=== PATIENT | male | born 1990 | race Two or more races ===

== ENCOUNTER 2019-06-12 08:52 | Emergency (ER) | payer MEDICAID ==
[2019-06-12 09:07] VITALS: BP 158/96
[2019-06-12 10:40] LABS: ABSOLUTE BASOPHILS # (AUTO) 0.1 10^3/uL (0.0-0.2); ABSOLUTE EOSINOPHILS # (AUTO) 0.3 10^3/uL (0.0-0.6); ABSOLUTE LYMPHOCYTES (AUTO) 2.2 10^3/uL (0.5-4.7); ABSOLUTE MONOCYTES (AUTO) 0.6 10^3/uL (0.1-1.4); ABSOLUTE NEUT (AUTO) 4.5 10^3/uL (1.7-8.2); BASOPHILS % (AUTO) 0.7 % (0-2); EOSINOPHILS % (AUTO) 3.5 % (0-6); HEMATOCRIT 49.9 % (37.9-51.0); HEMOGLOBIN 16.6 g/dL (13.5-17.0); LYMPHOCYTES % (AUTO) 28.8 % (13-45); MEAN CORPUSCULAR HGB CONC 33.3 g/dL (32.0-36.0); MEAN CORPUSCULAR VOLUME 87 fl (80-97); MONOCYTES % (AUTO) 7.9 % (3-13); PLATELET COUNT 312 10^3/uL (150-450); RED BLOOD COUNT 5.74 10^6/uL (4.35-5.55); RED CELL DISTRIBUTION WIDTH 14.1 % (11.5-14.0); SEGMENTED NEUTROPHILS % (AUTO) 59.1 % (42-78); TOTAL CELLS COUNTED % (AUTO) 100 %; WHITE BLOOD COUNT 7.6 10^3/uL (4.0-10.5)
[2019-06-12] MEDS ORDERED: NORMAL SALINE 1000 ML 1,000 ML IV ONE (10:54)
[2019-06-12 11:05] LABS: ALBUMIN 4.8 g/dL (3.5-5.0); ALKALINE PHOSPHATASE 91 U/L (38-126); ANION GAP 14 (5-19); ASPARTATE AMINO TRANSFERASE 74 U/L (17-59); BILIRUBIN,DIRECT 0.2 mg/dL (0.0-0.4); BILIRUBIN,TOTAL 0.5 mg/dL (0.2-1.3); BLOOD UREA NITROGEN 10 mg/dL (7-20); CALCIUM 10.2 mg/dL (8.4-10.2); CARBON DIOXIDE 22 mmol/L (22-30); CHLORIDE 106 mmol/L (98-107); CREATINE KINASE 343 U/L (55-170); GLUCOSE 99 mg/dL (75-110); POTASSIUM 4.7 mmol/L (3.6-5.0); TOTAL PROTEIN 8.4 g/dL (6.3-8.2)
[2019-06-12 11:14] LABS: CREATINE KINASE MB 3.42 ng/mL (<4.55)
[2019-06-12 11:21] LABS: TROPONIN I 0.068 ng/mL
[2019-06-12 11:53] LABS: APPEARANCE,URINE CLEAR; BILIRUBIN,URINE NEGATIVE (NEGATIVE); COLOR,URINE YELLOW; GLUCOSE, URINE NEGATIVE (NEGATIVE); KETONES,URINE NEGATIVE (NEGATIVE); LEUKOCYTE ESTERASE,URINE NEGATIVE (NEGATIVE); NITRITE,URINE NEGATIVE (NEGATIVE); PROTEIN,URINE NEGATIVE (NEGATIVE); URINE SPECIFIC GRAVITY 1.018
[2019-06-12 12:19] LABS: URINE AMPHETAMINES SCREEN NEGATIVE; URINE BARBITURATES SCREEN NEGATIVE; URINE BENZODIAZEPINES SCREEN NEGATIVE; URINE COCAINE SCREEN NEGATIVE; URINE MARIJUANA (THC) SCREEN NEGATIVE; URINE METHADONE SCREEN NEGATIVE; URINE PHENCYCLIDINE SCREEN NEGATIVE
--- NOTE | 2019-06-12 12:22 | ER Document Report ---
Entered by SRAVANTHI DOMINGUEZ SCRIBE 06/12/19 1055 Acting as scribe for:KLAUS CERVANTES MD ED General - General Chief Complaint: Syncope Stated Complaint: SYNCOPAL EPISODE Time Seen by Provider: 06/12/19 10:39 Mode of Arrival: Ambulatory Information source: Patient Notes: 29-year-old male who presents to the emergency department today with complaints of a syncopal event that occurred this morning prior to arrival. Patient states he had just woken up, was getting clothes out and getting ready for work when the syncope occurred. Patient states the floor that he passed out on was carpeted. Patient denies any injuries from the event. Patient states he did not bite his tongue or become incontinent. - Related Data Allergies/Adverse Reactions: No Known Allergies Allergy (Unverified 06/12/19 09:50) Past Medical History - General Information source: Patient - Social History Smoking Status: Current Every Day Smoker Cigarette use (# per day): Yes - 1/2 ppd Chew tobacco use (# tins/day): No Frequency of alcohol use: Occasional Drug Abuse: None Occupation: call center Family History: Reviewed & Not Pertinent Patient has suicidal ideation: No Patient has homicidal ideation: No Review of Systems - Review of Systems Constitutional: No symptoms reported EENT: No symptoms reported Cardiovascular: See HPI, Syncope, Dizziness Respiratory: No symptoms reported Gastrointestinal: No symptoms reported Genitourinary: No symptoms reported Male Genitourinary: No symptoms reported Musculoskeletal: No symptoms reported Skin: No symptoms reported Hematologic/Lymphatic: No symptoms reported Neurological/Psychological: No symptoms reported -: Yes All other systems reviewed and negative Physical Exam - Vital signs Vitals: Temp Pulse Resp BP Pulse Ox 98.7 F 97 14 158/96 H 99 06/12/19 09:06 06/12/19 09:06 06/12/19 09:06 06/12/19 09:06 06/12/19 09:06 - Notes Notes: Physical Exam: General: Alert, appears well. HEENT: Normocephalic. Atraumatic. PERRL. Extraocular movements intact. Oropharynx clear. Edges of the patient's tongue are indented where teeth rest against it. Dry oral mucosa. Neck: Supple. Non-tender. Respiratory: No respiratory distress. Clear and equal breath sounds bilaterally. Cardiovascular: Regular rate and rhythm. Abdominal: Normal Inspection. Non-tender. No distension. Normal Bowel Sounds. Back: No gross abnormalities. Extremities: Moves all four extremities. Upper extremities: Normal inspection. Normal ROM. Lower extremities: Normal inspection. No edema. Normal ROM. Neurological: Normal cognition. AAOx4. Normal speech. Psychological: Normal affect. Normal Mood. Skin: Warm. Dry. Normal color. Course - Re-evaluation Re-evalutation: 06/12/19 11:12 The patient told the nurse after I left the room, that he wanted to be tested for STDs and HIV. I did ask the nurse to inform patient that we would do GC and chlamydia testing, but he would need to go to the health department for HIV testing. 06/12/19 11:49 The nurse just informed me that the patient pulled his IV out and eloped. - Vital Signs Vital signs: Temp Pulse Resp BP Pulse Ox 98.7 F 97 14 158/96 H 99 06/12/19 09:06 06/12/19 09:06 06/12/19 09:06 06/12/19 09:06 06/12/19 09:06 - Laboratory Result Diagrams: 06/12/19 10:05 06/12/19 10:05 Laboratory results interpreted by me: 06/12/19 06/12/19 06/12/19 10:05 10:05 10:05 RBC 5.74 H RDW 14.1 H AST 74 H Creatine Kinase 343 H Total Protein 8.4 H Urine Urobilinogen 4.0 H Discharge - Discharge Clinical Impression: Syncope and collapse, Requesting STD testing Disposition: ELOPED Scribe Attestation: 06/12/19 11:11 I personally performed the services described in the documentation, reviewed and edited the documentation which was dictated to the scribe in my presence, and it accurately records my words and actions. I personally performed the services described in the documentation, reviewed and edited the documentation which was dictated to the scribe in my presence, and it accurately records my words and actions.
[2019-06-12 12:59] LABS: CHLAM PCR NOT DETECTED (NOT DETECT)
--- NOTE | 2019-06-12 13:02 | EKG REPORT ---
SEVERITY:- NORMAL ECG - SINUS RHYTHM : Confirmed by: Farhat Odonnell MD 12-Jun-2019 13:02:03
== END 2019-06-12 11:49 | disposition left against medical advice (07) ==
LOC: ER 08:52
DX: R55 Syncope and collapse (principal); R42 Dizziness and giddiness; F17.210 Nicotine dependence, cigarettes, uncomplicated; Z11.3 Encounter for screening for infections with a predominantly sexual mode of transmission; Z53.20 Procedure and treatment not carried out because of patient's decision for unspecified reasons
CPT/HCPCS: 36415; 80053; 80307; 81001; 82550; 82553; 84484; 85025; 87491; 87591; 93005; 93010; 99281

== ENCOUNTER 2019-08-14 17:47 | Emergency (ER) | payer OTHER, MEDICAID ==
--- NOTE | 2019-08-14 18:20 | ER Document Report ---
ED Medical Screen (RME) - General Chief Complaint: Abdominal Pain Stated Complaint: LOWER ABDOMINAL PAIN Time Seen by Provider: 08/14/19 18:13 TRAVEL OUTSIDE OF THE [place] IN LAST 30 DAYS: No - HPI Notes: 08/14/19 18:17 Patient is a 29-year-old male with history of asthma who presents complaining of some burning with urination and left inguinal pain since Sunday. Patient states he does have some pain is mild to his left testicle as well. Patient states that he was preoperatively treated a couple weeks ago for exposure to gonorrhea. He has not noticed any drainage. He has been able to eat and drink without difficulty. He is having normal bowel movements. Denies drug allergies. No fever, chest pain, vomiting, diarrhea. I have treated and performed a rapid initial assessment of this patient. A comprehensive ED assessment and evaluation of the patient, analysis of test results and completion of medical decision making process will be conducted by additional ED providers. PHYSICAL EXAMINATION: GENERAL: Well-appearing, well-nourished and in no acute distress. ABDOMEN: Soft, nontender, nondistended abdomen. No guarding, no rebound. Normal bowel sounds present. No CVA tenderness bilaterally. : There is no erythema, swelling, ecchymosis, rash, necrosis noted. There is no urethral discharge or obvious inguinal hernia. + possible left inguinal adenopathy noted. Nontender to palpation of the testicles, scrotum, epididymal sacs, and penis. No transverse testicular lie. Cremasterics grossly intact bilaterally. - Related Data Allergies/Adverse Reactions: No Known Allergies Allergy (Verified 08/14/19 18:12) Past Medical History - Social History Chew tobacco use (# tins/day): No Frequency of alcohol use: None Drug Abuse: None Pulmonary Medical History: Reports: Hx Asthma Physical Exam - Vital signs Vitals: Temp Pulse Resp BP Pulse Ox 100.0 F 106 H 18 166/98 H 99 08/14/19 17:55 08/14/19 17:55 08/14/19 17:55 08/14/19 17:55 08/14/19 17:55 Course - Vital Signs Vital signs: Temp Pulse Resp BP Pulse Ox 100.0 F 106 H 18 166/98 H 99 08/14/19 18:12 08/14/19 17:55 08/14/19 18:12 08/14/19 17:55 08/14/19 18:12
[2019-08-14 19:01] LABS: ABSOLUTE BASOPHILS # (AUTO) 0.1 10^3/uL (0.0-0.2); ABSOLUTE EOSINOPHILS # (AUTO) 0.1 10^3/uL (0.0-0.6); ABSOLUTE LYMPHOCYTES (AUTO) 1.8 10^3/uL (0.5-4.7); ABSOLUTE MONOCYTES (AUTO) 0.8 10^3/uL (0.1-1.4); ABSOLUTE NEUT (AUTO) 13.3 10^3/uL (1.7-8.2); BASOPHILS % (AUTO) 0.6 % (0-2); EOSINOPHILS % (AUTO) 0.9 % (0-6); HEMATOCRIT 44.2 % (37.9-51.0); HEMOGLOBIN 15.1 g/dL (13.5-17.0); LYMPHOCYTES % (AUTO) 10.9 % (13-45); MEAN CORPUSCULAR HEMOGLOBIN 28.9 pg (27.0-33.4); MEAN CORPUSCULAR HGB CONC 34.2 g/dL (32.0-36.0); MEAN CORPUSCULAR VOLUME 85 fl (80-97); PLATELET COUNT 372 10^3/uL (150-450); RED BLOOD COUNT 5.23 10^6/uL (4.35-5.55); RED CELL DISTRIBUTION WIDTH 13.8 % (11.5-14.0); SEGMENTED NEUTROPHILS % (AUTO) 82.6 % (42-78); TOTAL CELLS COUNTED % (AUTO) 100 %
[2019-08-14 19:25] LABS: ALBUMIN 4.4 g/dL (3.5-5.0); ALKALINE PHOSPHATASE 82 U/L (38-126); ANION GAP 15 (5-19); ASPARTATE AMINO TRANSFERASE 116 U/L (17-59); BILIRUBIN,DIRECT 0.2 mg/dL (0.0-0.4); BLOOD UREA NITROGEN 7 mg/dL (7-20); CALCIUM 9.8 mg/dL (8.4-10.2); CARBON DIOXIDE 25 mmol/L (22-30); CHLORIDE 96 mmol/L (98-107); GLUCOSE 85 mg/dL (75-110); POTASSIUM 3.5 mmol/L (3.6-5.0); TOTAL PROTEIN 7.8 g/dL (6.3-8.2)
--- NOTE | 2019-08-14 19:31 | RADIOLOGY REPORT (SQ) ---
EXAM DESCRIPTION: U/S SCROTUM W/DOPPLER COMPLETED DATE/TIME: 08/14/2019 7:20 pm REASON FOR STUDY: left testicular/inguinal pain COMPARISON: None. TECHNIQUE: Static and realtime angel scale imaging of the scrotum and testes. Selected color Doppler and spectral images recorded to document blood flow. LIMITATIONS: None. FINDINGS: RIGHT: TESTICLE: Normal size. Normal echotexture. Normal blood flow. No mass. EPIDIDYMIS: Normal. HYDROCELE OR VARICOCELE: No. HERNIA OR EXTRA-TESTICULAR MASS: No. OTHER: No other significant finding. LEFT: TESTICLE: Normal size. Normal echotexture. Normal blood flow. No mass. EPIDIDYMIS: Normal. HYDROCELE OR VARICOCELE: Small hydrocele. HERNIA OR EXTRA-TESTICULAR MASS: No. OTHER: No other significant finding. IMPRESSION: No evidence of testicular mass or torsion. Small left hydrocele. TECHNICAL DOCUMENTATION: JOB ID: [id number] [employer]- All Rights Reserved Reading location - IP/workstation name: [email or web address]
[2019-08-14] MEDS ORDERED: NORMAL SALINE 1000 ML 1,000 ML IV ONE ×2 (20:50→22:18)
--- NOTE | 2019-08-14 20:50 | ER Document Report ---
ED GI/ - General Chief Complaint: Abdominal Pain Stated Complaint: LOWER ABDOMINAL PAIN Time Seen by Provider: 08/14/19 18:13 Primary Care Provider: [facility] [Provider Group] - Follow up as needed [facility] [Provider Group] - Follow up as needed [facility] [Provider Group] - Follow up as needed [facility] [Provider Group] - Follow up as needed [facility] [Provider Group] - Follow up as needed Mode of Arrival: Ambulatory Information source: Patient Notes: 29-year-old male presented to ED for complaint of left testicular/groin pain for the last couple days. He states he was exposed to gonorrhea about a month ago and was treated and has not noted any more drainage. He states he has had urinary frequency urgency and burning. He states he has been able to eat and drink and has had a fever for couple days. He states he is having normal bowel movements. He states he has not had any nausea or vomiting or diarrhea or. He states when he first came in his temperature was 100 but he feels like he has a fever at this time. I did do his vital signs his temperature was 101.9 blood pressure 150/87 pulse 115 with 98% sats and 20 respirations. I have ordered him some IV fluids rechecked the GC and chlamydia on a dirty urine he already has a clean urine done in the lab but it had not been running yet I have called and told him that we need to get that runnig. Urine was collected at 11 PM. TRAVEL OUTSIDE OF THE [place] IN LAST 30 DAYS: No - HPI Patient complains to provider of: Groin pain - Left, Testicular pain - Left Onset: Other - Since Sunday Timing/Duration: Persistent Quality of pain: Burning Severity at maximum: Moderate Severity in ED: Moderate Pain Level: 2 Location: Other - Left groin/testicle. He states now it is only in the testicle Associated symptoms: Urinary frequency, Urinary urgency, Other - Burning with urination Exacerbated by: Movement, Other - Urination Relieved by: Denies Similar symptoms previously: Yes Recently seen / treated by doctor: No - Related Data Allergies/Adverse Reactions: No Known Allergies Allergy (Verified 08/14/19 18:12) Past Medical History - General Information source: Patient - Social History Smoking Status: Former Smoker Chew tobacco use (# tins/day): No Frequency of alcohol use: None Drug Abuse: None Lives with: Family, Spouse/Significant other Family History: Reviewed & Not Pertinent Patient has suicidal ideation: No Patient has homicidal ideation: No - Past Medical History Cardiac Medical History: Reports: None Pulmonary Medical History: Reports: Hx Asthma EENT Medical History: Reports: None Neurological Medical History: Reports: None Endocrine Medical History: Reports: None Renal/ Medical History: Reports: None Malignancy Medical History: Reports None GI Medical History: Reports: None Musculoskeletal Medical History: Reports None Skin Medical History: Reports None Psychiatric Medical History: Reports: None Traumatic Medical History: Reports: None Infectious Medical History: Reports: None Surgical Hx: Negative Past Surgical History: Reports: None - Immunizations Immunizations up to date: Yes Review of Systems - Review of Systems Constitutional: No symptoms reported EENT: No symptoms reported Cardiovascular: No symptoms reported Respiratory: No symptoms reported Gastrointestinal: No symptoms reported Genitourinary: Burning, Frequency, Urgency Male Genitourinary: Testicular pain - Left Musculoskeletal: No symptoms reported Skin: No symptoms reported Hematologic/Lymphatic: No symptoms reported Neurological/Psychological: No symptoms reported -: Yes All other systems reviewed and negative Physical Exam - Vital signs Vitals: Temp Pulse Resp BP Pulse Ox 100.0 F 106 H 18 166/98 H 99 08/14/19 17:55 08/14/19 17:55 08/14/19 17:55 08/14/19 17:55 08/14/19 17:55 Interpretation: Normal - General General appearance: Appears well, Alert - HEENT Head: Normocephalic, Atraumatic Eyes: Normal Pupils: PERRL - Respiratory Respiratory status: No respiratory distress Chest status: Nontender Breath sounds: Normal Chest palpation: Normal - Cardiovascular Rhythm: Regular Heart sounds: Normal auscultation Murmur: No - Abdominal Inspection: Normal Distension: No distension Bowel sounds: Normal Tenderness: Tender - Suprapubic Organomegaly: No organomegaly - Back Back: Normal, Nontender - Extremities General upper extremity: Normal inspection, Nontender, Normal color, Normal ROM, Normal temperature General lower extremity: Normal inspection, Nontender, Normal color, Normal ROM, Normal temperature, Normal weight bearing. No: Pastor's sign - Neurological Neuro grossly intact: Yes Cognition: Normal Orientation: AAOx4 Rodriguez Coma Scale Eye Opening: Spontaneous Rodriguez Coma Scale Verbal: Oriented Rodriguez Coma Scale Motor: Obeys Commands Rodriguez Coma Scale Total: 15 Speech: Normal Motor strength normal: LUE, RUE, LLE, RLE Sensory: Normal - Psychological Associated symptoms: Normal affect, Normal mood - Skin Skin Temperature: Warm Skin Moisture: Dry Skin Color: Normal Course - Re-evaluation Re-evalutation: 08/14/19 22:19 Ultrasound and labs were discussed with patient and written report is given to patient. The GC and chlamydia is not back as yet. Patient will be treated empirically with doxycycline 100 mg p.o. twice daily Levaquin 500 mg p.o. daily x10 and Rocephin 250 mg IM in the emergency room. He is positive for UTI and hydrocele. He is in a monogamous relationship with his " "he states they were positive for gonorrhea and recently treated. He states he does not know if he waited the required number of days that he was supposed to before having sex again. He and his partner have both been instructed to please refrain from any sexual intercourse until they receive the results from the test and if it is positive they both need to wait at least 10 days before any sex at all. Patient and partner both have verbalized understanding. Partner stated he will be tested at [facility] tomorrow. - Vital Signs Vital signs: Temp Pulse Resp BP Pulse Ox 99.3 F 100 20 132/85 H 97 08/14/19 23:15 08/14/19 23:15 08/14/19 23:15 08/14/19 23:15 08/14/19 23:15 - Laboratory Result Diagrams: 08/14/19 18:34 08/14/19 18:34 Laboratory results interpreted by me: 08/14/19 08/14/19 08/14/19 17:50 18:34 18:34 WBC 16.0 H Lymph % (Auto) 10.9 L Absolute Neuts (auto) 13.3 H Seg Neutrophils % 82.6 H Sodium 136.1 L Potassium 3.5 L Chloride 96 L AST 116 H Urine Ketones 20 H Urine Blood SMALL H Leukocyte Esterase Rfl MODERATE H - Diagnostic Test Radiology reviewed: Image reviewed, Reports reviewed Discharge - Discharge Clinical Impression: Hydrocele in adult, Urethritis UTI (urinary tract infection) Qualifiers: Urinary tract infection type: acute cystitis Hematuria presence: with hematuria Qualified Code(s): N30.01 - Acute cystitis with hematuria Condition: Stable Disposition: HOME, SELF-CARE Additional Instructions: URINARY TRACT INFECTION: Your evaluation indicates that you have a urinary tract infection. This is due to germs growing in the bladder. This is a common problem. This infection usually responds quickly to antibiotics. Your antibiotic should be taken exactly as prescribed. Drink plenty of fluids -- three to four quarts a day. Occasionally, a bladder anesthetic will be prescribed to help stop the feeling of urgency until the antibiotic has a chance to clear the infection. This may cause your urine to be dark orange. Certain urine infections require a culture. If the doctor obtained a culture, the results will be back in two days. You should call to see if a change in treatment is needed. A repeat urinalysis after you finish treatment is often recommended. The physician will let you know if further testing is required. Call the doctor if you develop fever, chills, flank pain, inability to urinate, or blood in the urine. Urethritis You have urethritis, an infection of the urethra. The usual symptoms are pain on urination and discharge. The infection is often caused by gonorrhea or chlamydia. Treatment is antibiotics. In addition, any sexual contacts should be evaluated by a physician as soon as possible. As this infection can be transmitted sexually, refrain from sexual activity until the infection is confirmed as healed by your physician. If gonorrhea or chlamydia is found on culture, the health department must be notified. Call the doctor at once if you develop difficulty passing your urine, high fever, rash, joint swelling, or other new symptoms. Hydrocele You have been diagnosed as having a hydrocele. The sac that holds the testicles is called the scrotum. A hydrocele is usually a painless collection of fluid in the membrane that covers the testicle(s). This may be present at or develop later on in life. The cause is usually unknown. In infants a hydrocele can be due to a miscommunication of the fluid surrounding the testes. In adults a hydrocele may form due to injury or inflammation of surrounding structures. Most hydroceles require no treatment, and usually resolve on their own. However, sometimes surgical intervention is recommended for recurrent, or for unusually large hydroceles. The surgery to fix a hydrocele is a minor pr ocedure and usually takes about 1 and 1/2 hours. ANTIBIOTIC THERAPY: You have been given an antibiotic prescription. It's important that you take all the medication, unless instructed otherwise by your physician. Failure to complete the entire course can result in relapse of your condition. Common side effects of antibiotics include nausea, intestinal cramping, or diarrhea. Women may develop vaginal yeast infections, and babies can get yeast (thrush) in the mouth following the use of antibiotics. Contact your physician if you develop significant side effects from this medication. Allergy to this antibiotic can result in hives, wheezing, faintness, or itching. If symptoms of allergy occur, stop the medication and call the doctor. LEVOFLOXACIN: You have been given an antibacterial agent, levofloxacin (Levaquin). This medicine is not related to the penicillins, sulfas, cephalosporins, or tetracyclines. It is often given to patients who are allergic to these drugs. It has been chosen for you either because other drugs are not appropriate, or because of the nature of your problem. Levaquin should not be taken with antacids, as these can decrease its effectiveness. It can be taken without regard to meals. LEVAQUIN SHOULD NOT BE TAKEN BY CHILDREN, NURSING WOMEN, OR WOMEN. Although Levaquin is usually well-tolerated, common side effects can include nausea and diarrhea. Contact your doctor if you experience any unusual symptoms while on this medication, such as joint pain or swelling, shortness of breath, wheezing, faintness, or hives. Doxycycline Doxycycline (Vibramycin, Doryx) is an antibiotic of the tetracycline family. This type of drug is useful for infections of the respiratory tract and genital tract, and is sometimes used for intestinal infections. Unlike most tetracyclines, doxycycline can be taken with food. It is longer acting, and (usually) less prone to side effects than regular tetracycline. Tetracycline antibiotics can stain immature teeth and SHOULD NOT BE TAKEN BY CHILDREN, NURSING MOTHERS, OR WOMEN. Tetracyclines can make you more prone to sunburn. Abdominal cramping, nausea, and diarrhea are occasional side effects. Women may experience vaginal yeast infections. Call the doctor at once if you develop hives, itching, shortness of breath, or lightheadedness. Rocephin You have been given an injection of an antibiotic called Rocephin (ceftriaxone). Sometimes the injection must be combined with antibiotic pills. For some infections, such as an uncomplicated ear infection, Rocephin provides all the antibiotic that's needed. The antibiotic will be in your body for about two days. For serious infe ctions, we usually repeat doses of Rocephin daily. Side effects are very unusual following a shot. Women may develop vaginal yeast infections, and babies can get yeast (thrush) in the mouth following the use of antibiotics. Contact your physician if you have symptoms with this medication. Allergy to this antibiotic can result in hives, wheezing, faintness, or itching. If symptoms of allergy occur, call the doctor at once. Intravenous (IV) Fluids As part of your care today, you received intravenous (IV) fluids. IV fluids are administered to patients who are dehydrated or to those who have certain chemical (electrolyte) abnormalities that need correcting. Toradol Injection You have been given an injection of ketorolac tromethamine (Toradol). This is an excellent, safe drug for pain control. It also has potent antiin flammatory action. You should have significant pain relief within about one hour. Toradol is not addicting and is non-sedating. It does not interfere with driving or work. Call or return if you develop itching, hives, shortness of breath, or rash. FOLLOW-UP CARE: If you have been referred to a physician for follow-up care, call the physicians office for an appointment as you were instructed or within the next two days. If you experience worsening or a significant change in your symptoms, notify the physician immediately or return to the Emergency Department at any ti me for re-evaluation. Prescriptions: Doxycycline Hyclate 100 mg PO BID #20 capsule Levofloxacin [Levaquin 500 mg Tablet] 500 mg PO DAILY #10 tablet Forms: Elevated Blood Pressure Referrals: [facility] [Provider Group] - Follow up as needed [facility] [Provider Group] - Follow up as needed [facility] [Provider Group] - Follow up as needed [facility] [Provider Group] - Follow up as needed [facility] [Provider Group] - Follow up as needed
[2019-08-14] MEDS ORDERED: KETOROLAC TROMETHAMINE INJ/PF 30 MG/1 ML SDV IV ONE (20:51)
[2019-08-14 21:32] LABS: APPEARANCE,URINE SLIGHTLY-CLOUDY; BILIRUBIN,URINE NEGATIVE (NEGATIVE); COLOR,URINE YELLOW; GLUCOSE, URINE NEGATIVE (NEGATIVE); KETONES,URINE 20 mg/dL (NEGATIVE); PROTEIN,URINE NEGATIVE (NEGATIVE); URINE SPECIFIC GRAVITY 1.014; UROBILINOGEN,URINE NEGATIVE mg/dL (<2.0)
[2019-08-14] MEDS ORDERED: DOXYCYCLINE HYCLATE 100 MG TABLET PO ONE (22:06)
[2019-08-14] MEDS ORDERED: LIDOCAINE 1% INJ-PF (10 MG/ML) 30 ML SDV INJ ONE (22:06)
[2019-08-14] MEDS ORDERED: LEVOFLOXACIN 500 MG TABLET PO ONE (22:06)
[2019-08-14] MEDS ORDERED: CEFTRIAXONE INJ 250 MG VIAL IM ONE (22:06)
[2019-08-14 22:47] LABS: CHLAM PCR NOT DETECTED (NOT DETECT)
[2019-08-14 23:47] VITALS: BP 132/85
== END 2019-08-14 23:15 | disposition home or self-care (01) ==
LOC: ER 17:47
DX: N30.01 Acute cystitis with hematuria (principal); N34.2 Other urethritis; N43.3 Hydrocele, unspecified; N50.812 Left testicular pain; J45.909 Unspecified asthma, uncomplicated; Z87.891 Personal history of nicotine dependence; Z20.2 Contact with and (suspected) exposure to infections with a predominantly sexual mode of transmission
CPT/HCPCS: 36415; 85025; 80053; 81001; 87491; 87591; 76870; 93976; J3490; J1885; J7030; J0696; 87086; 87088; 96361; 96374; 96375; 99284

== ENCOUNTER 2019-08-16 12:10 | Emergency (ER) | payer MEDICAID, OTHER ==
--- NOTE | 2019-08-16 12:36 | ER Document Report ---
HPI - HPI Time Seen by Provider: 08/16/19 12:30 Pain Level: 4 Context: Patient is a 29-year-old male who presents emergency department with a chief complaint of scrotal swelling. He was seen 2 days ago and was told he had a hydrocele. He is also being treated for urinary tract infection. - ROS Systems Reviewed and Negative: Yes All other systems reviewed and negative - GASTROINTESTINAL Gastrointestinal: DENIES: Abdominal Pain, Nausea, Patient vomiting, Diarrhea, Constipation - REPRODUCTIVE Notes: Testicular swelling/pain - MUSCULOSKELETAL Musculoskeletal: DENIES: Extremity pain - DERM Skin Color: Normal Skin Problems: None Past Medical History - Social History Smoking Status: Former Smoker Family History: Reviewed & Not Pertinent Patient has suicidal ideation: No Patient has homicidal ideation: No Pulmonary Medical History: Reports: Hx Asthma - Immunizations Immunizations up to date: Yes Vertical Provider Document - CONSTITUTIONAL Agree With Documented VS: Yes Exam Limitations: No Limitations General Appearance: No Apparent Distress - INFECTION CONTROL TRAVEL OUTSIDE OF THE [place] IN LAST 30 DAYS: No - HEENT HEENT: Atraumatic, Normocephalic, PERRLA - NECK Neck: Normal Inspection - RESPIRATORY Respiratory: No Respiratory Distress - CARDIOVASCULAR Cardiovascular: Regular Rate, Regular Rhythm - REPRODUCTIVE Male Genitalia: Abnormal Inspection - Tenderness to left testicle; mild hernia noted on Left side on physical exam. - MUSCULOSKELETAL/EXTREMETIES Musculoskeletal/Extremeties: FROM - NEURO Level of Consciousness: Awake, Alert, Appropriate Motor/Sensory: No Motor Deficit, No Sensory Deficit - DERM Integumentary: Warm, Dry, No Rash Course - Re-evaluation Re-evalutation: 08/16/19 15:18 Patient still has the left-sided hydrocele, which has increased just a little bit. He is also now starting to develop a right-sided hydrocele. I discussed these faint findings with the patient. He will be referred out to urology. The radiologist also saw there is a possible hernia. I stressed the fact that the patient needs to make sure he wears compression underwear. Expressed that he needs to continue doxycycline and Levaquin. Testicular exam done with OTTONIEL Ronquillo at bedside. Small hernia noted on the right side. Patient will also follow- up with the surgeon in regards to this visit. - Vital Signs Vital signs: Temp Pulse Resp BP Pulse Ox 98.8 F 97 18 128/80 H 98 08/16/19 12:30 08/16/19 12:30 08/16/19 12:30 08/16/19 12:30 08/16/19 12:30 Discharge - Discharge Clinical Impression: Hydrocele in adult Inguinal hernia Qualifiers: Obstruction and gangrene presence: without obstruction or gangrene Laterality: unspecified laterality Recurrence: not specified as recurrent Qualified Code(s): K40.90 - Unilateral inguinal hernia, without obstruction or gangrene, not specified as recurrent Condition: Stable Disposition: HOME, SELF-CARE Additional Instructions: You are seen today in the emergency department for testicular pain. Used to have hydrocele. Please continue your antibiotics you are on. Please follow-up with urology. You also have a hernia. Hernias are usually not a problem, if you continue to have problems, please follow-up with the surgeon below. Continue your antibiotics. Please make sure you wear compression underwear. Take ibuprofen 600 mg every 6 hours to help with inflammation and pain. Referrals: [facility] [Provider Group] - 08/18/19 SARAH GORDON MD [ACTIVE STAFF] - Follow up as needed
--- NOTE | 2019-08-16 14:37 | RADIOLOGY REPORT (SQ) ---
EXAM DESCRIPTION: U/S SCROTUM W/DOPPLER COMPLETED DATE/TIME: 08/16/2019 2:15 pm REASON FOR STUDY: eval hydrocele; increased swelling COMPARISON: 08/14/2019 TECHNIQUE: Static and realtime angel scale imaging of the scrotum and testes. Selected color Doppler and spectral images recorded to document blood flow. LIMITATIONS: None. FINDINGS: RIGHT: TESTICLE: Normal size. Normal echotexture with incidental note made of a small focal calcification. Normal blood flow. No mass. EPIDIDYMIS: Normal. HYDROCELE OR VARICOCELE: Small simple appearing hydrocele. HERNIA OR EXTRA-TESTICULAR MASS: A small fat containing right inguinal hernia may be present. OTHER: No other significant finding. LEFT: TESTICLE: Normal size. Normal echotexture with incidental note made of a small focal calcification. Normal blood flow. No mass. EPIDIDYMIS: Normal. HYDROCELE OR VARICOCELE: The previously demonstrated hydrocele appears somewhat increased in volume d emonstrating mildly complex cyst echogenicity. HERNIA OR EXTRA-TESTICULAR MASS: A small fat containing left inguinal hernia may be present. OTHER: No other significant finding. IMPRESSION: The previously described left-sided hydrocele appears mildly increased in volume on toda y's examination. Interval development of a very small right sided hydrocele. No evidence of varicoc john, torsion, or mass. Small fat containing inguinal hernias may be present. TECHNICAL DOCUMENTATION: JOB ID: [id number]- All Rights Reserved Reading location - IP/workstation name: [email or web address]
[2019-08-16 15:28] VITALS: BP 126/78
== END 2019-08-16 15:30 | disposition home or self-care (01) ==
LOC: ER 12:10
DX: N43.3 Hydrocele, unspecified (principal); K40.90 Unilateral inguinal hernia, without obstruction or gangrene, not specified as recurrent; N39.0 Urinary tract infection, site not specified; J45.909 Unspecified asthma, uncomplicated; Z79.891 Long term (current) use of opiate analgesic
CPT/HCPCS: 76870; 93976; 99284